=== PATIENT | female | born 1955 | race Caucasian/White ===

== ENCOUNTER 2016-11-20 14:15 | Emergency (ER) | payer BC ==
[2016-11-20 14:20] VITALS: RESP 18; TEMP 98.2
[2016-11-20] MEDS ORDERED: SODIUM CHLORIDE 0.9% 500 ML IV STA (14:53)
--- NOTE | 2016-11-20 14:55 | ED ---
General Adult HPI - General Chief complaint: Abdominal Pain Stated complaint: Abd Pain Time Seen by Provider: 11/20/16 14:42 Source: patient, RN notes reviewed Mode of arrival: ambulatory Limitations: no limitations - History of Present Illness Initial comments: Patient 61-year-old female who presents emergency room today with a chief complaint of urinary tract infection symptoms over the last 3 weeks. Does note some discomfort and pressure over the urinary bladder. States she began feeling some pain radiate around to the back. States that symptoms started 3 weeks ago when she was out of [facility] and [facility] and had negative urine sample. States that symptoms have been getting worse. Has talked with family doctor was unable to get an appointment with an urgent care clinic and had a negative urine sample concerns further evaluation and possible kidney stone by CT. Patient denies any recent fever, chills, shortness of breath, chest pain, nausea or vomiting, numbness or tingling, hematuria, constipation or diarrhea, headaches or visual changes, or any other complaints. - Related Data Home Medications Medication Instructions Recorded Confirmed Bisoprolol-Hctz 10-6.25 mg [Ziac 1 tab PO DAILY 11/20/16 11/20/16 10-6.25] Calcium Carbonate [Calcium] 1,200 mg PO DAILY 11/20/16 11/20/16 Cholecalciferol [Vitamin D3] 1,000 unit PO DAILY 11/20/16 11/20/16 Fish Oil/Dha/Epa [Fish Oil 1,200 1 cap PO DAILY 11/20/16 11/20/16 mg Fish Oil] Multivitamins, Thera [Multivitamin 1 tab PO DAILY 11/20/16 11/20/16 (formulary)] Naproxen [Naprosyn] 500 mg PO Q12HR 11/20/16 11/20/16 Omeprazole [PriLOSEC] 20 mg PO AC-BRKFST 11/20/16 11/20/16 traMADol-ACETAMINOP 37.5-325MG 2 tab PO BID 11/20/16 11/20/16 [Ultracet] Previous Rx's Medication Instructions Recorded Ciprofloxacin HCl [Cipro] 500 mg PO Q12HR #20 day 11/20/16 Hydrocodone/Acetaminophen [Maskell 1 each PO Q6HR PRN #20 tab 11/20/16 5-325] Tamsulosin [Flomax] 0.4 mg PO DAILY #10 cap 11/20/16 Allergies Allergy/AdvReac Type Severity Reaction Status Date / Time enalaprilat [From Vaseretic] Allergy Swelling Verified 11/20/16 15:14 hydrochlorothiazide Allergy Swelling Verified 11/20/16 15:14 [From Vaseretic] Review of Systems ROS Statement: Those systems with pertinent positive or pertinent negative responses have been documented in the HPI. ROS Other: All systems not noted in ROS Statement are negative. Past Medical History Past Medical History: Hypertension Additional Past Medical History / Comment(s): arthritis History of Any Multi-Drug Resistant Organisms: None Reported Past Surgical History: Tonsillectomy Additional Past Surgical History / Comment(s): right rotator cuff, left shoulder replaced, back surgery, right arm surgery Past Psychological History: No Psychological Hx Reported Smoking Status: Never smoker Past Alcohol Use History: Occasional Past Drug Use History: None Reported General Exam - General Exam Comments Initial Comments: General: The patient is awake and alert, in no distress, and does not appear acutely ill. Eye: Pupils are equal, round and reactive to light, extra-ocular movements are intact. No nystagmus. There is normal conjunctiva bilaterally. No signs of icterus. Ears, nose, mouth and throat: There are moist mucous membranes and no oral lesions. Neck: The neck is supple, there is no tenderness or JVD. Cardiovascular: There is a regular rate and rhythm. No murmur, rub or gallop is appreciated. Respiratory: Lungs are clear to auscultation, respirations are non-labored, breath sounds are equal. No wheezes, stridor, rales, or rhonchi. Gastrointestinal: Normal bowel sounds. Soft on palpation. Patient does have tenderness sutures over the bladder. Mild left-sided CVA tenderness. No rebound tenderness. No guarding. Musculoskeletal: Normal ROM, no tenderness. Strength 5/5. Sensation intact. Pulses equal bilaterally 2+. Neurological: A&O x 3. CN II-XII intact, There are no obvious motor or sensory deficits. Coordination appears grossly intact. Speech is normal. Skin: Skin is warm and dry and no rashes or lesions are noted. Psychiatric: Cooperative, appropriate mood & affect, normal judgment. Limitations: no limitations Course Vital Signs 11/20/16 11/20/16 14:17 16:46 Temperature 98.2 F Pulse Rate 72 74 Respiratory 18 18 Rate Blood Pressure 184/81 162/78 O2 Sat by Pulse 97 98 Oximetry Medical Decision Making - Medical Decision Making Labs reviewed does show mildly elevated BUN/creatinine. No previous labs to review. Patient's CT of the abdomen and pelvis to show 2-3 mm stone in the left proximal ureter. Results were discussed patient is currently sitting at bedside very comfortable. Memory pain medication here. She had some trace blood in her urinalysis no sign of infection but she does admit to some all smell. Case discussed in detail with attending physician Dr. Reina. Patient will be discharged home advised follow-up the family doctor over the next 1-2 days. She will be given a prescription for [place], Flomax, and covered with antibiotics of ciprofloxacin. Patient. Return if there is any fever, or increased worsening of symptoms. Patient and her that bedside state understanding and are in agreement. - Lab Data Result diagrams: 11/20/16 15:25 11/20/16 15:25 Lab Results 11/20/16 11/20/16 11/20/16 Range/Units 15:25 15:25 15:25 WBC 4.8 (3.8-10.6) k/uL RBC 3.98 (3.80-5.40) m/uL Hgb 11.8 (11.4-16.0) gm/dL Hct 37.3 (34.0-46.0) % MCV 93.9 (80.0-100.0) fL MCH 29.6 (25.0-35.0) pg MCHC 31.5 (31.0-37.0) g/dL RDW 15.6 H (11.5-15.5) % Plt Count 268 (150-450) k/uL Neutrophils % 52 % Lymphocytes % 26 % Monocytes % 8 % Eosinophils % 6 % Basophils % 1 % Neutrophils # 2.5 (1.3-7.7) k/uL Lymphocytes # 1.3 (1.0-4.8) k/uL Monocytes # 0.4 (0-1.0) k/uL Eosinophils # 0.3 (0-0.7) k/uL Basophils # 0.1 (0-0.2) k/uL Sodium 131 L (137-145) mmol/L Potassium 4.3 (3.5-5.1) mmol/L Chloride 95 L (98-107) mmol/L Carbon Dioxide 24 (22-30) mmol/L Anion Gap 12 mmol/L BUN 32 H (7-17) mg/dL Creatinine 1.23 H (0.52-1.04) mg/dL Est GFR (MDRD) Af Amer 53 (>60 ml/min/1.73 sqM) Est GFR (MDRD) Non-Af 44 (>60 ml/min/1.73 sqM) Glucose 144 H (74-99) mg/dL Calcium 9.4 (8.4-10.2) mg/dL Total Bilirubin 0.4 (0.2-1.3) mg/dL AST 47 H (14-36) U/L ALT 47 (9-52) U/L Alkaline Phosphatase 210 H (38-126) U/L Total Protein 7.7 (6.3-8.2) g/dL Albumin 3.7 (3.5-5.0) g/dL Amylase 60 (30-110) U/L Lipase 90 (23-300) U/L Urine Color Light Yellow Urine Appearance Clear (Clear) Urine pH 6.0 (5.0-8.0) Ur Specific [place] 1.008 (1.001-1.035) Urine Protein 1+ H (Negative) Urine Glucose (UA) Negative (Negative) Urine Ketones Negative (Negative) Urine Blood Trace H (Negative) Urine Nitrite Negative (Negative) Urine Bilirubin Negative (Negative) Urine Urobilinogen <2.0 (<2.0) mg/dL Ur Leukocyte Esterase Negative (Negative) Urine RBC <1 (0-5) /hpf Urine WBC <1 (0-5) /hpf Urine Mucus Rare H (None) /hpf Disposition Clinical Impression: Kidney stone Disposition: HOME SELF-CARE Condition: Good Instructions: Kidney Stones (ED) Additional Instructions: Please use medication as discussed. Please follow-up with family doctor in the next 2 days of symptoms have not improved. Please return to emergency room if the symptoms increase or worsen or for any other concerns. Prescriptions: Ciprofloxacin HCl [Cipro] 500 mg PO Q12HR #20 day Hydrocodone/Acetaminophen [Maskell 5-325] 1 each PO Q6HR PRN #20 tab PRN Reason: Pain Tamsulosin [Flomax] 0.4 mg PO DAILY #10 cap Referrals: Lora Torres DO [Primary Care Provider] - 1-2 days Time of Disposition: 17:26
[2016-11-20 15:39] LABS: Aty Lym Flag Slight; Basophils # (A) 0.1 k/uL (0-0.2); Basophils % (A) 1 %; CHCM 33.2; Eosinophils # (A) 0.3 k/uL (0-0.7); Eosinophils % (A) 6 %; HCT 37.3 % (34.0-46.0); HDW 2.58; HGB 11.8 gm/dL (11.4-16.0); Luc # (Auto) 0.34; Luc % (Auto) 7; Lymphocytes # (A) 1.3 k/uL (1.0-4.8); Lymphocytes % (A) 26 %; MCH 29.6 pg (25.0-35.0); MCHC 31.5 g/dL (31.0-37.0); MCV 93.9 fL (80.0-100.0); Mean Platelet Volume 7.9; Monocytes # (A) 0.4 k/uL (0-1.0); Monocytes % (A) 8 %; Neutrophils # (A) 2.5 k/uL (1.3-7.7); Neutrophils % (A) 52 %; RBC 3.98 m/uL (3.80-5.40); RDW 15.6 % (11.5-15.5); WBC 4.8 k/uL (3.8-10.6); WBC (Perox) 5.02
[2016-11-20 15:40] LABS: Appearance,Urine Clear (Clear); Bilirubin,Urine Negative (Negative); Glucose,Urine (UA) Negative (Negative); Ketones,Urine Negative (Negative); Leukocyte Esterase,Urine Negative (Negative); Mucus,Urine Rare /hpf; Nitrite,Urine Negative (Negative); Particle Count 1260; Protein,Urine 1+ (Negative); RBC,Urine <1 /hpf (0-5); Specific Gravity,Urine 1.008 (1.001-1.035); UA Billing (MACRO vs. MICRO) MICRO; Urobilinogen,Urine <2.0 mg/dL (<2.0); WBC,Urine <1 /hpf (0-5)
[2016-11-20 15:52] LABS: Calcium 9.4 mg/dL (8.4-10.2); Potassium 4.3 mmol/L (3.5-5.1); Total Bilirubin 0.4 mg/dL (0.2-1.3); Total Protein 7.7 g/dL (6.3-8.2)
[2016-11-20 16:50] VITALS: BP 162/78; PULSE 74
--- NOTE | 2016-11-20 17:07 | CT ---
EXAMINATION TYPE: CT abdomen pelvis wo con DATE OF EXAM: 11/20/2016 COMPARISON: NONE HISTORY: Left flank pain. CT DLP: 2158.30 mGycm Automated exposure control for dose reduction was used. TECHNIQUE: Helical acquisition of images was performed from the lung bases through the pelvis. FINDINGS: Lung bases are clear of consolidation. There is no pleural effusion. There is no pericardial effusion . Heart appears mildly enlarged. Liver spleen pancreas gallbladder appear normal. Bile ducts are not dilated. There is no adrenal mass . There is slight fullness of the left renal collecting system. There is a possible tiny stone in the proximal left ureter. The right upper collecting system is not dilated. There is a 2 cm cortical cys t on the anterior left kidney. There is no sign of retroperitoneal adenopathy. There is no ascites. Bladder distends smoothly. I see no pelvic mass. Appendix appears normal. Uterus is anteverted. There is multilevel posterior lumbar fusion surgery. There is resultant metal artifact that limits the detail. There is probably a first-d egree L4-5 spondylolisthesis. There is 20% anterior wedging of T12 vertebra. This appears old. Old le ft pubic fractures are noted. IMPRESSION: THERE IS A POSSIBLE TINY STONE OBSTRUCTING THE LEFT UPPER COLLECTING SYSTEM IN THE PROXIMAL LEFT URE TER. THIS MEASURES 2 TO 3 MM.
== END 2016-11-20 17:43 | disposition home or self-care (01) ==
LOC: EC 14:15
DX: N20.2 Calculus of kidney with calculus of ureter (principal); M19.90 Unspecified osteoarthritis, unspecified site; I10 Essential (primary) hypertension; Z88.8 Allergy status to other drugs, medicaments and biological substances; Z79.1 Long term (current) use of non-steroidal anti-inflammatories (NSAID); Z79.891 Long term (current) use of opiate analgesic; Z79.899 Other long term (current) drug therapy
CPT/HCPCS: 36415; 74176; 80053; 81001; 82150; 83690; 85025; 87086; 96360; 96361; 99284

== ENCOUNTER 2018-04-10 16:35 | Emergency (ER) | payer BC, MEDICARE ==
[2018-04-10] MEDS ORDERED: DIPH,PERTUS(ACELL)TETVAC-LF 0.5 ML VIAL IM ONE (18:05)
[2018-04-10] MEDS ORDERED: TOPICAL SKIN ADHESIVE 1 EACH AMP TOPICAL ONE (18:05)
--- NOTE | 2018-04-10 18:34 | ED ---
General Adult HPI - General Chief complaint: Fall Stated complaint: Fall, facial injury Time Seen by Provider: 04/10/18 17:33 Source: patient, RN notes reviewed Mode of arrival: ambulatory Limitations: no limitations - History of Present Illness Initial comments: 63-year-old female presents to the emergency department for a chief complaint of head injury. Patient states she was walking into the garage. She states the garage has a very smooth slippery floor. She states she uses a cane and the bottom of the cane slipped causing her to fall. Patient states she broke most of the fall with her left arm. She denies any arm pain. She did state that she hit the top and front of her head. She states she had small cuts above her left eye. No loss of consciousness. No blood thinners. No neck pain. Patient denies any other injuries. Patient does not want anything for pain. Patient is not up-to-date on tetanus. Patient has no other complaints at this time including shortness of breath, chest pain, abdominal pain, nausea or vomiting, headache, or visual changes. - Related Data Home Medications Medication Instructions Recorded Confirmed Bisoprolol-Hctz 10-6.25 mg [Ziac 1 tab PO DAILY 11/20/16 04/10/18 10-6.25] Calcium Carbonate [Calcium] 600 mg PO DAILY 11/20/16 04/10/18 Cholecalciferol [Vitamin D3] 1,000 unit PO DAILY 11/20/16 04/10/18 Fish Oil/Dha/Epa [Fish Oil 1,200 1 cap PO DAILY 11/20/16 04/10/18 mg Fish Oil] Multivitamins, Thera [Multivitamin 1 tab PO DAILY 11/20/16 04/10/18 (formulary)] Naproxen [Naprosyn] 500 mg PO Q12HR 11/20/16 04/10/18 Omeprazole [PriLOSEC] 20 mg PO AC-BRKFST 11/20/16 04/10/18 traMADol-ACETAMINOP 37.5-325MG 2 tab PO BID 11/20/16 04/10/18 [Ultracet] Levothyroxine Sodium [Synthroid] 75 mcg PO DAILY 04/10/18 04/10/18 Allergies Allergy/AdvReac Type Severity Reaction Status Date / Time enalaprilat [From Vaseretic] Allergy Swelling Verified 04/10/18 18:36 hydrochlorothiazide Allergy Swelling Verified 04/10/18 18:36 [From Vaseretic] Review of Systems ROS Statement: Those systems with pertinent positive or pertinent negative responses have been documented in the HPI. ROS Other: All systems not noted in ROS Statement are negative. Past Medical History Past Medical History: Hypertension Additional Past Medical History / Comment(s): arthritis History of Any Multi-Drug Resistant Organisms: None Reported Past Surgical History: Tonsillectomy Additional Past Surgical History / Comment(s): right rotator cuff, left shoulder replaced, back surgery, right arm surgery Past Psychological History: No Psychological Hx Reported Smoking Status: Never smoker Past Alcohol Use History: Occasional Past Drug Use History: None Reported General Exam Limitations: no limitations General appearance: alert, in no apparent distress Head exam: Absent: atraumatic (hematoma noted above left eyebrow) Eye exam: Present: normal appearance, PERRL, EOMI, periorbital swelling ( hematoma noted to superior periorbital area), periorbital tenderness, other ( Superficial linear laceration about 1 cm in length noted to the left eyebrow as well as inferior to left eye). Absent: scleral icterus, conjunctival injection ENT exam: Present: normal exam, normal oropharynx, mucous membranes moist, TM's normal bilaterally (neg hemotympanum), normal external ear exam Neck exam: Present: normal inspection, full ROM. Absent: tenderness (no cervical neck tenderness), meningismus, lymphadenopathy Respiratory exam: Present: normal lung sounds bilaterally. Absent: respiratory distress, wheezes, rales, rhonchi, stridor Cardiovascular Exam: Present: regular rate, normal rhythm, normal heart sounds. Absent: systolic murmur, diastolic murmur, rubs, gallop, clicks GI/Abdominal exam: Present: soft, normal bowel sounds. Absent: distended, tenderness, guarding, rebound, rigid Extremities exam: Present: full ROM (moving all extremieis, no pain) Back exam: Absent: CVA tenderness (R), CVA tenderness (L), vertebral tenderness (no thoracic or lumbar tenderness) Neurological exam: Present: alert, oriented X3, CN II-XII intact Psychiatric exam: Present: normal affect, normal mood Course Vital Signs 04/10/18 17:27 Temperature 98 F Pulse Rate 68 Respiratory 16 Rate Blood Pressure 181/77 O2 Sat by Pulse 98 Oximetry Medical Decision Making - Medical Decision Making 63-year-old well-appearing female presents to the emergency department for a chief complaint of head injury. Patient slipped on the floor in the garage and hit her head. Patient hit the left frontal area. Patient does have a contusion noted above the left eye. Solids centimeter laceration noted above the left eye just inferior to the left eye from her glasses. Tetanus updated here. Wounds were cleaned thoroughly and glued. I did offer patient sutures but she would prefer glue at this time. Aware that glue may come off and she could have possible scar with stitches. Patient will at glue fall off on its own. CT brain and C-spine are negative for fracture or hemorrhage. Negative computed tomography scan of the facial bones as well. There is mild left frontal scalp soft tissue swelling noted without fracture. She will follow up with primary care for head injury and return here if she has any worsening symptoms. Disposition Clinical Impression: Head injury, Laceration Disposition: HOME SELF-CARE Condition: Good Instructions (If sedation given, give patient instructions): Head Injury (ED), Laceration (ED), Skin Adhesive Care (ED) Additional Instructions: Please follow up with primary care in 1-2 days. Please return to the emergency department if you have any worsening symptoms. Otherwise let glue fall off on its own. Take tylenol for pain. Is patient prescribed a controlled substance at d/c from ED?: No Referrals: Lora Torres DO [Primary Care Provider] - 1-2 days Time of Disposition: 19:32
--- NOTE | 2018-04-10 19:20 | CT ---
EXAMINATION TYPE: CT brain devan rodriguez DATE OF EXAM: 04/10/2018 COMPARISON: None HISTORY: Fall injury. facial lacerations CT DLP: 1347.8 mGycm Automated exposure control for dose reduction was used. TECHNIQUE: CT scan of the head and cervical spine are performed without contrast. FINDINGS: Ventricles of normal size. There is no mass effect nor midline shift. There is no sign of intracranial hemorrhage. The calvarium is intact. Cervical vertebra have fairly normal alignment. There is degenerative disc space narrowing at C5-6 C6 -7 with moderate spurring of the endplates. There is facet arthropathy in the lower cervical spine. T he skull base is intact. There is no evidence of a fracture. IMPRESSION: Head CT scan appears normal for age. Spondylotic changes in the lower cervical spine. No fracture seen.
--- NOTE | 2018-04-10 19:25 | CT ---
EXAMINATION TYPE: CT facial bones wo con DATE OF EXAM: 04/10/2018 COMPARISON: None HISTORY: fall injury. Facial lacerations CT DLP: 1347.8 mGycm Automated exposure control for dose reduction was used. TECHNIQUE: CT scan of the sinuses is performed without contrast, axial images are obtained, coronal r eformatted images are also reviewed. FINDINGS: The orbital margins are intact. There is no evidence of a blowout fracture. There is fairly normal aeration of the paranasal sinuses. There is bilateral patency of the ostiomeatal complex. Man dibular ring is intact. Zygomatic arches appear normal. The maxilla is intact. Nasal bone is intact. There is no evidence of retro-orbital mass. IMPRESSION: Negative CT scan of the facial bones. Mild left frontal scalp soft tissue swelling noted. No fracture.
[2018-04-10 20:09] VITALS: BP 154/95; PULSE 66; RESP 18; TEMP 97.9
== END 2018-04-10 20:07 | disposition home or self-care (01) ==
LOC: EC 16:35
DX: S01.112A Laceration without foreign body of left eyelid and periocular area, initial encounter (principal); S01.81XA Laceration without foreign body of other part of head, initial encounter; I10 Essential (primary) hypertension; M19.90 Unspecified osteoarthritis, unspecified site; Z23 Encounter for immunization; Z96.612 Presence of left artificial shoulder joint; Z98.890 Other specified postprocedural states; Z79.1 Long term (current) use of non-steroidal anti-inflammatories (NSAID); Z79.890 Hormone replacement therapy; Z79.891 Long term (current) use of opiate analgesic; Z79.899 Other long term (current) drug therapy; Z88.8 Allergy status to other drugs, medicaments and biological substances; W00.0XXA Fall on same level due to ice and snow, initial encounter; Y92.89 Other specified places as the place of occurrence of the external cause; Y93.01 Activity, walking, marching and hiking
CPT/HCPCS: 12011; 70450; 70486; 72125; 90471; 90715; 99283

== ENCOUNTER 2022-06-11 15:45 | Emergency (ER) | payer MEDICARE ==
[~2022-06-11 15:45] MED LIST: ATROPINE SULFATE 0.1 MG/ML 10ML SYRINGE ONE; EPINEPHrine 10 ML SYRINGE (0.1 MG/ML) ONE; SODIUM BICARB 8.4% 50 ML SYR (1 MEQ/ML) ONE
[2022-06-11] MEDS ORDERED: EPINEPHrine 4 MG in DEXTROSE 5% IN WATER 250 ML IV ONE ×4 (16:17→16:20)
[2022-06-11] MEDS ORDERED: IPRATROPIUM-ALBUTEROL 3 ML NEB INHALATION PRN (16:20)
--- NOTE | 2022-06-11 16:20 | ED ---
General Adult HPI - General Stated complaint: Cardiac Arrest Time Seen by Provider: 06/11/22 15:45 Source: EMS, RN notes reviewed Mode of arrival: EMS Limitations: altered mental status, physical limitation - History of Present Illness Initial comments: Patient is a 67-year-old female presenting to the emergency department for cardiac arrest. Patient is brought by EMS. Call received approximately 1508. They did arrive less than 5 minutes later and CPR was started. Patient was mostly in PEA however did have return of circulation for approximately 3 minutes. Patient did receive 3 epinephrine and 1 atropine. Patient was intubated. Patient is unresponsive and provides no history at this time. - Related Data Home Medications Medication Instructions Recorded Confirmed Bisoprolol-Hctz 10-6.25 mg [Ziac 1 tab PO DAILY 11/20/16 04/10/18 10-6.25] Calcium Carbonate [Calcium] 600 mg PO DAILY 11/20/16 04/10/18 Cholecalciferol [Vitamin D3] 1,000 unit PO DAILY 11/20/16 04/10/18 Fish Oil/Dha/Epa [Fish Oil 1,200 1 cap PO DAILY 11/20/16 04/10/18 mg Fish Oil] Multivitamins, Thera [Multivitamin 1 tab PO DAILY 11/20/16 04/10/18 (formulary)] Naproxen [Naprosyn] 500 mg PO Q12HR 11/20/16 04/10/18 Omeprazole [PriLOSEC] 20 mg PO AC-BRKFST 11/20/16 04/10/18 traMADol-ACETAMINOP 37.5-325MG 2 tab PO BID 11/20/16 04/10/18 [Ultracet] Levothyroxine Sodium [Synthroid] 75 mcg PO DAILY 04/10/18 04/10/18 Allergies Allergy/AdvReac Type Severity Reaction Status Date / Time enalaprilat [From Vaseretic] Allergy Swelling Verified 06/11/22 16:23 hydrochlorothiazide Allergy Swelling Verified 06/11/22 16:23 [From Vaseretic] Review of Systems ROS Statement: Those systems with pertinent positive or pertinent negative responses have been documented in the HPI. ROS Other: All systems not noted in ROS Statement are negative. Limitations: ROS unobtainable due to patients medical condition Past Medical History Past Medical History: Hypertension Additional Past Medical History / Comment(s): arthritis Last Myocardial Infarction Date:: sarcoid History of Any Multi-Drug Resistant Organisms: None Reported Past Surgical History: Tonsillectomy Additional Past Surgical History / Comment(s): right rotator cuff, left shoulder replaced, back surgery, right arm surgery Past Psychological History: No Psychological Hx Reported Past Alcohol Use History: Occasional Past Drug Use History: None Reported General Exam Limitations: altered mental status, physical limitation General appearance: obtunded Head exam: Present: atraumatic Eye exam: Present: other (Pupils fixed and dilated) ENT exam: Present: other (Patient intubated) Neck exam: Present: normal inspection Respiratory exam: Present: other (No spontaneous breath sounds. Breath sounds are equal with bagging insufflation) Cardiovascular Exam: Present: bradycardia Expanded Peripheral pulses: 2+: Radial (R), Radial (L), Femoral (R), Femoral (L) GI/Abdominal exam: Present: soft. Absent: tenderness Extremities exam: Present: normal inspection Neurological exam: Present: altered, other (GCS 3) Psychiatric exam: Present: other (Nonverbal) Skin exam: Present: normal color Course Vital Signs 06/11/22 16:21 Fraction of 100 Inspired Oxygen (FIO2) Procedures - Central Line Placement Right Femoral Consent Obtained: emergent situation Patient Placed on Monitor/Pulse Ox: Yes MD Prep: mask, gown, gloves Central Line Prep: Chlorhexidine scrub Ultrasound Used for Placement: No Central Line Lumen Inserted: triple Central Line Position: good blood return, all ports aspirated, flushed, capped, sutured in place with 3-0 nylon Dressing Applied: Tegaderm Patient Tolerated Procedure: well, no complications Complications: none Medical Decision Making - Medical Decision Making Was pt. sent in by a medical professional or institution (, PA, FAMILY SERVICE AIDE, urgent care, hospital, or care home...) When possible be specific @ -No Did you speak to anyone other than the patient for history (EMS, parent, family, police, friend...)? What history was obtained from this source @ -EMS provides history of code. Patient did receive 3 epinephrine and 1 atropine and CPR close to 30 minutes and route. Patient was intubated. Did you review nursing and triage notes (agree or disagree)? Why? @ -I reviewed and agree with nursing and triage notes Were old charts reviewed (outside hosp., previous admission, EMS record, old EKG, old radiological studies, urgent care reports/EKG's, care home records)? Report findings @ -No old charts were reviewed Differential Diagnosis (chest pain, altered mental status, abdominal pain women, abdominal pain men, vaginal bleeding, weakness, fever, dyspnea, syncope, headache, dizziness, GI bleed, back pain, seizure, CVA, palpatations, mental health)? @ -not applicable EKG interpreted by me (3pts min.). @ -As above X-rays interpreted by me (1pt min.). @ -None done CT interpreted by me (1pt min.). @ -None done U/S interpreted by me (1pt. min.). @ -None done What testing was considered but not performed or refused? (CT, X-rays, U/S, labs)? Why? @ -None What meds were considered but not given or refused? Why? @ -None Did you discuss the management of the patient with other professionals (professionals i.e. , PA, FAMILY SERVICE AIDE, lab, RT, psych nurse, drug abuse social worker, religious education coordinator, teacher, seal delivery vehicle officer, watch caser)? Give summary @ -No Was smoking cessation discussed for >3mins.? @ -No Was critical care preformed (if so, how long)? @ -No Were there social determinants of health that impacted care today? How? (Homelessness, low income, unemployed, alcoholism, drug addiction, transportation, low edu. Level, literacy, decrease access to med. care, correction, rehab)? @ -No Was there de-escalation of care discussed even if they declined (Discuss DNR or withdrawal of care, Hospice)? DNR status @ -No What co-morbidities impacted this encounter? (DM, HTN, Smoking, COPD, CAD, Cancer, CVA, ARF, Chemo, Hep., AIDS, mental health diagnosis, sleep apnea, morbid obesity)? @ -None Was patient admitted / discharged? Hospital course, mention meds given and route, prescriptions, significant lab abnormalities, going to OR and other pertinent info. @ -Patient had multiple rounds of CPR and kept losing her pulse repetitively. I did discuss this with the family and they did decide to not continue CPR. We did go back to the room and CPR was again started prior to them arriving. It was held at this time. Patient was found to have no pulse. At 1644 patient was pronounced. No pulse. No spontaneous heart sounds. No spontaneous breath sounds. Pupils are fixed and dilated. No response to pain. Time of is 1644. credit union examiner paged. Primary care physician Lora Varela was paged. Undiagnosed new problem with uncertain prognosis? @ -No Drug Therapy requiring intensive monitoring for toxicity (Heparin, Nitro, Insulin, Cardizem)? @ -No Were any procedures done? @ -No Diagnosis/symptom? @ -Cardiopulmonary arrest Acute, or Chronic, or Acute on Chronic? @ -Acute, fatal Uncomplicated (without systemic symptoms) or Complicated (systemic symptoms)? @ -default Side effects of treatment? @ -No Exacerbation, Progression, or Severe Exacerbation? @ -No Poses a threat to life or bodily function? How? (Chest pain, USA, DC, pneumonia, PE, COPD, DKA, ARF, appy, cholecystitis, CVA, Diverticulitis, Homicidal, Suicidal, threat to staff... and all critical care pts) @ -No Unable to get a hold of primary care physician. We did try to call the office. Case was discussed with medical authorization specialist Betsey. Critical Care Time Critical Care Time: Yes Total Critical Care Time: 59 Disposition Clinical Impression: Cardiopulmonary arrest Disposition: Is patient prescribed a controlled substance at d/c from ED?: No Referrals: None,Stated [Primary Care Provider] - 1-2 days Time of Disposition: 17:03 Preliminary Cause of : Cardiopulmonary arrest
[2022-06-11] MEDS ORDERED: CHLORHEXIDINE GLUCONATE 15 ML CUP MUCOUS MEM SCH (21:00)
== END 2022-06-11 19:30 | disposition expired ==
LOC: EC 15:45
DX: I46.9 Cardiac arrest, cause unspecified (principal); I10 Essential (primary) hypertension; Z88.8 Allergy status to other drugs, medicaments and biological substances; Z79.899 Other long term (current) drug therapy
CPT/HCPCS: 99285; 36556 ×2; 99291; 92950; J0461; J0171